=== PATIENT | male | born 1940 | race Hispanic/Latino ===

== ENCOUNTER 2017-02-03 16:54 | Emergency (ER) | payer OTHER ==
[2017-02-03 17:00] VITALS: BMI 24.7
[2017-02-03 17:08] VITALS: BP 118/74; PULSE 60; RESP 18; TEMP 97.8; O2SAT 99
--- NOTE | 2017-02-03 17:13 | ED PDOC ---
Arrival/HPI - General Time Seen by Provider: 02/03/17 17:07 Historian: Patient - History of Present Illness Narrative History of Present Illness (Text): 02/03/17 17:10 This 76 yo male with pmh hypertension, presents to this emergency department complaining of right ankle pain x [employer]. Patient stated while playing golf, he slipped o the grass, causing to fall and twist his right ankle. Patient denies head injury, LOC, weakness, paresthesias, dizziness, vertigo, SOB. CP, abdominal pain, back pain, hip pain, knee pain, n/v, or abnormal gait. Patient admits walking after the fall with mild pain during ambulation. Time/Duration: Prior to Arrival Quality: Aching Context: Other (golf court) Past Medical History - Provider Review Nursing Documentation Reviewed: Yes Family/Social History - Physician Review Nursing Documentation Reviewed: Yes Family/Social History: Other (non-contributory) Allergies/Home Meds Allergies/Adverse Reactions: Allergies No Known Allergies Allergy (Verified 02/03/17 17:00) Home Medications: Home Meds Medication Instructions Recorded Confirmed Rosuvastatin Calcium [Crestor] 10 mg PO HS 02/03/17 02/03/17 Review of Systems - Review of Systems Constitutional: Normal. absent: Fatigue, Weight Change, Fevers Eyes: Normal ENT: Normal Respiratory: Normal. absent: SOB, Cough, Sputum, Wheezing Cardiovascular: Normal. absent: Chest Pain, Palpitations Gastrointestinal: Normal. absent: Abdominal Pain, Nausea, Vomiting Genitourinary Male: Normal. absent: Dysuria, Frequency, Hematuria Musculoskeletal: Normal Skin: Other (Ankle pain) Neurological: Normal. absent: Headache, Dizziness, Focal Weakness, Gait Changes , Speech Changes, Facial Droop, Disequilibrium, Seizure Endocrine: Normal Hemo/Lymphatic: Normal Psychiatric: Normal Physical Exam Vital Signs Temp Pulse Resp BP Pulse Ox 02/03/17 17:06 97.8 F 60 18 118/74 99 Temperature: Afebrile Blood Pressure: Normal Pulse: Regular Respiratory Rate: Normal Appearance: Positive for: Well-Appearing, Non-Toxic, Comfortable Pain Distress: None Mental Status: Positive for: Alert and Oriented X 3 - Systems Exam Head: Present: Atraumatic, Normocephalic, Other (no raccoon sign. No macias sign) Pupils: Present: PERRL, Other (no hyphema) Extroacular Muscles: Present: EOMI. No: Entrapment Conjunctiva: Present: Normal Ears: Present: Normal, NORMAL TM, Normal Canal, Other (no hemotympanum). No: Erythema, TM Bulging, Fluid, TM Perf Mouth: Present: Moist Mucous Membranes, Normal Lips, Normal Tounge, Normal Teeth. No: Drooling Pharnyx: Present: Normal. No: ERYTHEMA, EXUDATE, TONSILS ENLARGED Nose (External): Present: Atraumatic Nose (Internal): Present: Normal Inspection Neck: Present: Normal Range of Motion, Trachea Midline. No: Meningeal Signs, MIDLINE TENDERNESS, Paraspinal Tenderness, Lymphadenopathy Respiratory/Chest: Present: Clear to Auscultation, Good Air Exchange. No: Respiratory Distress, Accessory Muscle Use, Tender to Palpation Cardiovascular: Present: Regular Rate and Rhythm, Normal S1, S2. No: Murmurs Abdomen: Present: Normal Bowel Sounds. No: Tenderness, Distention, Peritoneal Signs, Rebound, Guarding Back: Present: Normal Inspection Upper Extremity: Present: Normal Inspection, Normal ROM, NORMAL PULSES, Neurovascularly Intact, Capillary Refill < 2s. No: Cyanosis, Edema Lower Extremity: Present: NORMAL PULSES, Neurovascularly Intact, Capillary Refill < 2 s, Other ((+) right ankle is moderate swollen and tenderness on lateral malleoulus. Interiano test is negative. No calf tenderness. No posterior ankle tenderness. No proximal fibular tenderness. no hip tenderness. Left ankle is normal). No: Edema, CALF TENDERNESS, Ab's Sign, Erythema, Deformity, Temperature Abnormalties Neurological: Present: GCS=15, CN II-XII Intact, Speech Normal, Motor Func Grossly Intact, Normal Sensory Function, Normal Cerebellar Funct, Memory Normal Skin: Present: Warm, Dry, Normal Color. No: Rashes Psychiatric: Present: Alert, Oriented x 3, Normal Insight, Normal Concentration Medical Decision Making ED Course and Treatment: 02/03/17 18:15 Patient is resting comfortably, and is in no acute distress. Patient was instructed to follow up with PMD in 1-2 days for further evaluation. Patient had a mechanical fall w/o head, neck back knee or hip injury. Patient was recommended to f/u Orthopedist office in 1-3 days. ANGELITA. Patient prefers cane over crutches. Patient agrees to get a walker at local pharmacy. Re-evaluation Time: 18:16 Reassessment Condition: Re-examined, Improved - RAD Interpretation Narrative RAD Interpretations (Text): 02/03/17 18:19 Ankle x-rays: (+) avulsion fracture of distal tibia Radiology Orders: 02/03/17 17:07 ANKLE RIGHT 3 VIEWS ROUTINE [RAD] Stat - Medication Orders Current Medication Orders: Discontinued Medications Ketorolac Tromethamine (Toradol) 15 mg IM STAT STA Stop: 02/03/17 17:09 Last Admin: 02/03/17 17:21 Dose: 15 mg MAR Pain Assessment Document 02/03/17 17:21 AD (Rec: 02/03/17 17:23 AD [id number]) Pain Reassessment Is this a pain reassessment? No Presence of Pain Presence of Pain Yes Pain Scale Used Pain Scale Used Numeric Location Left, Right or Bilateral Right Pain Location Body Site Ankle Description Description Sharp Intensity of Pain at present 4 Pain Behavior Facial Grimacing Aggravating Factors Changing Position Exercise/Activity Walking Alleviating Factors/Management Medication Techniques Ice Alleviating Factors Ice IM Administration Charges Document 02/03/17 17:21 AD (Rec: 02/03/17 17:23 AD [id number]) Injection Site MAR Injection Site Left Gluteus Reilly Charges for Administration # of IM Administrations 1 - Procedure PROCEDURE NOTE (Text): 02/03/17 18:24 PROCEDURE: SPLINT APPLICATION Applied by me, Emergency Provider. Location: right ankle Procedure: The area of the splint was appropriately positioned. A 5 inch orth glass, posterior long leg splint was applied. Post-procedure: Good position. Neurovascular status remains intact. Patient tolerated the procedure well with no immediate complications. Disposition/Present on Arrival - Present on Arrival Any Indicators Present on Arrival: No History of DVT/PE: No History of Uncontrolled Diabetes: No Urinary Catheter: No History of Decub. Ulcer: No - Disposition Have Diagnosis and Disposition been Completed?: Yes Diagnosis: Fracture of distal fibula Disposition: HOME/ ROUTINE Disposition Time: 18:20 Patient Plan: Discharge Patient Problems: Current Active Problems Problem Status Onset Fracture of distal fibula Acute Condition: GOOD Discharge Instructions (ExitCare): Ankle Fracture (ED) Additional Instructions: Call Dr. Curiel orthopedist for follow up visit in 1-2 days. Keep ankle elevated, ice, rest, splint, cane/walker till evaluated by orthopedist. Keep splint clean and dry. Return to emergency if ankle pain worsen or if leg swelling worsen Prescriptions: Ibuprofen [Motrin] 600 mg PO Q8 PRN #20 tab PRN Reason: Pain, Severe (8-10) Referrals: Viri Deng, [Primary Care Provider] - Follow up with primary oPwer Curiel DO [Staff Provider] - Follow up with primary Forms: [employer] (Y[place]i)
--- NOTE | 2017-02-04 09:17 | RAD ---
PROCEDURE: Right Ankle Radiographs. HISTORY: ankle pain s/p fall COMPARISON: None FINDINGS: BONES: Minimally displaced fracture of lateral malleolus. No other fracture identified. . JOINTS: Normal. No osteoarthritis. Ankle mortise maintained. Talar dome intact SOFT TISSUES: Lateral soft tissue swelling. OTHER FINDINGS: None. IMPRESSION: Lateral malleolar fracture, minimally displaced.
== END 2017-02-03 18:34 | disposition home or self-care (01) ==
LOC: ED 16:54
DX: S82.61XA Displaced fracture of lateral malleolus of right fibula, initial encounter for closed fracture (principal); W01.0XXA Fall on same level from slipping, tripping and stumbling without subsequent striking against object, initial encounter; Y93.66 Activity, soccer; Y92.39 Other specified sports and athletic area as the place of occurrence of the external cause; I10 Essential (primary) hypertension
CPT/HCPCS: 73610; 96372; 99284; J1885

== ENCOUNTER 2017-02-05 20:03 | Emergency (ER) | payer OTHER ==
[2017-02-05 20:10] VITALS: BP 117/73; RESP 17; TEMP 98.1; BMI 24.0
[2017-02-05 20:15] VITALS: PULSE 66; O2SAT 99
--- NOTE | 2017-02-05 21:18 | ED PDOC ---
Arrival/HPI - General Chief Complaint: Lower Extremity Problem/Injury Time Seen by Provider: 02/05/17 20:16 Historian: Patient - History of Present Illness Narrative History of Present Illness (Text): 02/05/17 21:15 A 76 year old male, whose past medical history includes hypertension, presents to the emergency department for evaluation of color change to toes. Patient states he was here recently for ankle fracture and today began to notice a change in 2nd and 3rd digits of left foot. Patient has no other complaints. PMD: Dr. Sebastian Merritt Past Medical History - Provider Review Nursing Documentation Reviewed: Yes - Cardiac Hx Hypertension: Yes - Pulmonary Hx Respiratory Disorders: No - Neurological Hx Neurological Disorder: No - HEENT Hx HEENT Disorder: No - Renal Hx Renal Disorder: No - Endocrine/Metabolic Hx Endocrine Disorders: No - Musculoskeletal/Rheumatological Hx Gout: Yes - Gastrointestinal Other/Comment: hx hernia - Genitourinary/Gynecological Hx Genitourinary Disorders: No - Psychiatric Hx Psychophysiologic Disorder: No Hx Substance Use: No - Surgical History Other/Comment: hx Hernia - Anesthesia Hx Anesthesia: Yes Hx Anesthesia Reactions: No Hx Malignant Hyperthermia: No Family/Social History - Physician Review Nursing Documentation Reviewed: Yes Family/Social History: No Known Family HX Smoking Status: Never Smoked Hx Alcohol Use: Yes Hx Substance Use: No Allergies/Home Meds Allergies/Adverse Reactions: Allergies No Known Allergies Allergy (Verified 02/05/17 20:09) Home Medications: Home Meds Medication Instructions Recorded Confirmed Rosuvastatin Calcium [Crestor] 10 mg PO HS 02/03/17 02/05/17 Review of Systems - Physician Review All systems were reviewed & negative as marked: Yes - Review of Systems Constitutional: absent: Fevers, Night Sweats Cardiovascular: absent: Chest Pain Gastrointestinal: absent: Abdominal Pain, Diarrhea, Nausea, Vomiting Skin: Other (color change to toes of 2nd and 3rd digit left foot) Physical Exam Vital Signs Reviewed: Yes Vital Signs Temp Pulse Resp BP Pulse Ox 02/05/17 20:11 98.1 F 66 17 117/73 99 02/05/17 20:08 98.1 F 68 17 117/73 98 Temperature: Afebrile Blood Pressure: Normal Pulse: Regular Respiratory Rate: Normal Appearance: Positive for: Well-Appearing Pain Distress: None Mental Status: Positive for: Alert and Oriented X 3 - Systems Exam Head: Present: Atraumatic, Normocephalic Pupils: Present: PERRL Extroacular Muscles: Present: EOMI Conjunctiva: Present: Normal Mouth: Present: Moist Mucous Membranes Neck: Present: Normal Range of Motion Respiratory/Chest: Present: Clear to Auscultation, Good Air Exchange. No: Respiratory Distress, Accessory Muscle Use Cardiovascular: Present: Regular Rate and Rhythm, Normal S1, S2. No: Murmurs Abdomen: Present: Normal Bowel Sounds. No: Tenderness, Distention, Peritoneal Signs Back: Present: Normal Inspection Upper Extremity: Present: Normal Inspection. No: Cyanosis, Edema Lower Extremity: Present: Normal ROM, Capillary Refill < 2 s. No: Tenderness, Deformity Neurological: Present: GCS=15, CN II-XII Intact, Speech Normal Skin: Present: Warm, Dry, Normal Color. No: Rashes Psychiatric: Present: Alert, Oriented x 3, Normal Insight, Normal Concentration Medical Decision Making ED Course and Treatment: 02/05/17 21:19 Impression: 76 year old male with color change to 2nd and 3rd digit toes of left foot. Plan: -- Reassess and disposition Prior Visits: Notes and results from previous visits were reviewed. Patient was last seen in the emergency department on 02/03/2017 for right ankle pain. Patient was discharged home Progress Notes: - Scribe Statement The provider has reviewed the documentation as recorded by the Wendi Law Provider Scribe Attestation: All medical record entries made by the Scribe were at my direction and personally dictated by me. I have reviewed the chart and agree that the record accurately reflects my personal performance of the history, physical exam, medical decision making, and the department course for this patient. I have also personally directed, reviewed, and agree with the discharge instructions and disposition. Disposition/Present on Arrival - Present on Arrival Any Indicators Present on Arrival: No History of DVT/PE: No History of Uncontrolled Diabetes: No Urinary Catheter: No History of Decub. Ulcer: No History Surgical Site Infection Following: None - Disposition Have Diagnosis and Disposition been Completed?: Yes Diagnosis: Fracture, fibula Disposition: HOME/ ROUTINE Disposition Time: 21:35 Condition: GOOD Discharge Instructions (ExitCare): Ankle Fracture (ED) Referrals: Vamsi Merritt MD [Primary Care Provider] - Follow up with primary Forms: [employer] (North Korean)
== END 2017-02-05 21:37 | disposition home or self-care (01) ==
LOC: ED 20:03
DX: S82.402A Unspecified fracture of shaft of left fibula, initial encounter for closed fracture (principal); X58.XXXA Exposure to other specified factors, initial encounter

== ENCOUNTER 2017-02-19 16:14 | Emergency (ER) | payer OTHER ==
[2017-02-19 16:15] VITALS: BMI 24.0
[2017-02-19 17:03] VITALS: RESP 18; TEMP 98
--- NOTE | 2017-02-19 17:51 | ED PDOC ---
Arrival/HPI - General Chief Complaint: Lower Extremity Problem/Injury Time Seen by Provider: 02/19/17 17:19 Historian: Patient - History of Present Illness Narrative History of Present Illness (Text): 02/19/17 17:48 76M w/PMH sig for Right fibula repair evaluated for RLE pain/swelling. Pt reports he was diagnosed here 2 wks ago, sent to ortho, given special boot for fibular fracture, but has been having pain/swelling using the boot and would like to have it evaluated for appropriate placement. Denies N/V/F/C, SOB, CP, palpitations, other complaints. Is very active/on his feet a lot of the day. PMH: HTN, recent Right Fibula fxr, gout, hx hernia PSH: Inguinal Hernia repair All: NKDA SH: Admits to occasional ETOH use, denies tobacco or illict drug use; is physically active PMD: Sebastian Merritt Time/Duration: > week Symptom Onset: Sudden Symptom Course: Worsening Quality: Pressure Severity Level: Moderate Context: Walking Past Medical History - Provider Review Nursing Documentation Reviewed: Yes - Cardiac Other/Comment: heart problems - Pulmonary Hx Respiratory Disorders: No - Neurological Hx Neurological Disorder: No - HEENT Hx HEENT Disorder: No - Renal Hx Renal Disorder: No - Endocrine/Metabolic Hx Endocrine Disorders: No - Hematological/Oncological Hx Blood Disorders: No - Musculoskeletal/Rheumatological Hx Gout: Yes - Gastrointestinal Hx Gastrointestinal Disorders: No Other/Comment: hx hernia - Genitourinary/Gynecological Hx Genitourinary Disorders: No - Psychiatric Hx Psychophysiologic Disorder: No Hx Substance Use: No - Surgical History Other/Comment: hx Hernia - Anesthesia Hx Anesthesia: Yes Hx Anesthesia Reactions: No Hx Malignant Hyperthermia: No Family/Social History - Physician Review Nursing Documentation Reviewed: Yes Family/Social History: No Known Family HX Smoking Status: Never Smoked Hx Alcohol Use: Yes Hx Substance Use: No Allergies/Home Meds Allergies/Adverse Reactions: Allergies No Known Allergies Allergy (Verified 02/05/17 20:09) Home Medications: Home Meds Medication Instructions Recorded Confirmed Rosuvastatin Calcium [Crestor] 10 mg PO HS 02/03/17 02/05/17 Review of Systems - Physician Review All systems were reviewed & negative as marked: Yes - Review of Systems Constitutional: Normal. absent: Fevers Eyes: Normal. absent: Vision Changes ENT: Normal. absent: Sore Throat Respiratory: Normal. absent: SOB Cardiovascular: Normal. absent: Chest Pain, Palpitations, Calf Pain, WILKES Gastrointestinal: Normal. absent: Abdominal Pain, Nausea, Vomiting Musculoskeletal: Other (RLE swelling/pain). absent: Normal Skin: Normal Neurological: Normal. absent: Headache Physical Exam Vital Signs Reviewed: Yes Vital Signs Temp Pulse Resp BP Pulse Ox 02/19/17 16:51 98.0 F 69 18 114/67 96 Temperature: Afebrile Blood Pressure: Normal Pulse: Regular Respiratory Rate: Normal Appearance: Positive for: Non-Toxic, Comfortable Pain Distress: None Mental Status: Positive for: Alert and Oriented X 3 - Systems Exam Head: Present: Atraumatic, Normocephalic Extroacular Muscles: Present: EOMI Mouth: Present: Moist Mucous Membranes Nose (External): Present: Atraumatic Neck: Present: Normal Range of Motion Respiratory/Chest: Present: Clear to Auscultation, Good Air Exchange. No: Respiratory Distress, Accessory Muscle Use, Wheezes, Rales, Rhonchi Cardiovascular: Present: Regular Rate and Rhythm, Normal S1, S2. No: Murmurs, Tachycardic Abdomen: Present: Normal Bowel Sounds. No: Tenderness, Distention, Peritoneal Signs Upper Extremity: Present: Normal Inspection. No: Cyanosis, Edema Lower Extremity: Present: Edema (RLE), Tenderness (RLE). No: Normal Inspection Neurological: Present: GCS=15, CN II-XII Intact, Speech Normal Skin: Present: Warm, Dry. No: Rashes, Normal Color (ecchymoses over posterior aspect of RLE) Psychiatric: Present: Alert, Oriented x 3, Normal Insight, Normal Concentration Medical Decision Making ED Course and Treatment: 02/19/17 17:53 Pt seen/evaluated. Case DW ED attending, will order pain medication and venous duplex to R/O DVT. Boot placement evaluated by tech- improperly inflated bladder in boot lining, contributing to swelling. 02/19/17 18:31 Venous duplex negative- ED attending notified. Will d/c home with modifications to boot bladder. - RAD Interpretation Radiology Orders: 02/19/17 17:35 DUPLEX LOWER EXTRM VEIN RIGHT [US] Stat - Medication Orders Current Medication Orders: Discontinued Medications Ibuprofen (Motrin Tab) 600 mg PO STAT STA Stop: 02/19/17 17:36 Last Admin: 02/19/17 17:51 Dose: 600 mg MAR Pain/Vitals Document 02/19/17 17:51 EQ (Rec: 02/19/17 17:51 EQ [id number]) Pain Reassessment Is This A Pain ReAssessment? No Sleep Is patient sleeping during reassessment? No Presence of Pain Presence of Pain Yes Pain Scale Used Pain Scale Used Numeric Disposition/Present on Arrival - Present on Arrival Any Indicators Present on Arrival: No History of DVT/PE: No History of Uncontrolled Diabetes: No Urinary Catheter: No History of Decub. Ulcer: No History Surgical Site Infection Following: None - Disposition Have Diagnosis and Disposition been Completed?: Yes Diagnosis: Right leg swelling Disposition: HOME/ ROUTINE Disposition Time: 18:32 Patient Plan: Discharge Patient Problems: Current Active Problems Problem Status Onset Right leg swelling Acute Condition: STABLE Discharge Instructions (ExitCare): Leg Edema (ED) Additional Instructions: Please do not inflate the bladder of the boot lining to the maximum- it causes compression of the vasculature of your leg and contributes to your swelling. Ok to continue to take anti-inflammatory as per orthopedic surgeon. Follow up with them as directed. Referrals: PCP,NO [Primary Care Provider] - Follow up with primary Forms: [employer] (Sammarinese)
[2017-02-19 18:43] VITALS: BP 128/94; PULSE 54; O2SAT 99
--- NOTE | 2017-02-19 19:37 | US ---
PROCEDURE: Right lower extremity venous US HISTORY: Leg pain and swelling. Evaluate for DVT. PHYSICIAN(S): Nain Clark M.D. TECHNIQUE: Duplex sonography and color-flow Doppler with graded compression were used to evaluate the deep venous system of the right lower extremity. FINDINGS: The visualized deep venous system of the right lower extremity is sonographically normal and compressible. Normal waveforms and augmentation are seen. There is no sonographic evidence for deep venous thrombosis in the visualized segments of the right lower extremity. IMPRESSION: 1. No sonographic evidence for deep venous thrombosis in the visualized segments of the right lower extremity.
== END 2017-02-19 18:43 | disposition home or self-care (01) ==
LOC: ED 16:14
DX: M79.89 Other specified soft tissue disorders (principal); I10 Essential (primary) hypertension